=== PATIENT | female | born 1995 | race Caucasian/White ===

== ENCOUNTER 2017-01-18 17:07 | Emergency (ER) | payer MEDICAID ==
[2017-01-18 17:20] VITALS: BP 115/66
--- NOTE | 2017-01-18 17:27 | UC ---
Eye Complaint HPI - HPI Summary HPI Summary: complaint of right eye redness that started this morning slightly itchy and irritated lots of purulent discharge denies eye pain vision changes daughter with conjunctivitis - History of Current Complaint Chief Complaint: UCEye Stated Complaint: EYE COMPLAINT Time Seen by Provider: 01/18/17 17:19 Hx Obtained From: Patient Hx Last Menstrual Period: IUD - Allergies/Home Medications Allergies/Adverse Reactions: Allergies Allergy/AdvReac Type Severity Reaction Status Date / Time No Known Allergies Allergy Verified 01/18/17 17:14 PMH/Surg Hx/FS Hx/Imm Hx Previously Healthy: Yes - Surgical History Surgical History: None - Family History Known Family History: Negative: Cardiac Disease, Hypertension, Diabetes - Social History Occupation: Employed Full-time Lives: With Family Alcohol Use: Rare Substance Use Type: None Smoking Status (MU): Current Every Day Smoker Amount Used/How Often: 1 pack every couple days Cessation Counseling: Patient Advised to Stop - Immunization History Most Recent Influenza Vaccination: NONE 2015 Most Recent Tetanus Shot: UTD Review of Systems Constitutional: Negative Skin: Negative Eyes: Drainage, Eye Redness ENT: Negative Respiratory: Negative Cardiovascular: Negative Gastrointestinal: Negative Genitourinary: Negative Motor: Negative Neurovascular: Negative Musculoskeletal: Negative Neurological: Negative Psychological: Negative All Other Systems Reviewed And Are Negative: Yes Physical Exam Triage Information Reviewed: Yes Appearance: No Pain Distress, Well-Nourished Vital Signs: Initial Vital Signs Temp 98.5 F 01/18/17 17:15 Pulse 89 01/18/17 17:15 Resp 16 01/18/17 17:15 BP 115/66 01/18/17 17:15 Pulse Ox 99 01/18/17 17:15 Vital Signs Reviewed: Yes Eyes: Positive: Conjunctiva Inflamed - right, Discharge - right ENT: Positive: Pharynx normal, TMs normal. Negative: Nasal congestion Neck: Positive: No Lymphadenopathy Respiratory: Positive: Lungs clear, Normal breath sounds, No respiratory distress, No accessory muscle use Cardiovascular: Positive: RRR, No Murmur, Pulses Normal Abdomen Description: Positive: Nontender, Soft Bowel Sounds: Positive: Present Musculoskeletal Exam: Normal Neurological: Positive: Alert Psychological Exam: Normal Skin Exam: Normal Eye Complaint Course/Dx - Differential Dx/Diagnosis Differential Diagnosis/HQI/PQRI: Conjunctivitis, Foreign Body Provider Diagnoses: conjunctivitis- right Discharge - Discharge Plan Condition: Stable Disposition: HOME Prescriptions: Tobramycin 0.3% OPHTH.WILLY* 1 drop BOTH EYES Q4H #1 btl Patient Education Materials: Conjunctivitis (ED) Forms: *Work Release Referrals: No Primary Care Phys,NOPCP [Primary Care Provider] - [facility] [place] PHYSICIAN REFERRAL [Outside] Additional Instructions: CONJUNCTIVITIS What is Conjunctivitis? Conjunctivitis is redness and swelling of the conjunctiva, the thin transparent layer that lines the inner eyelid and covers the white part of the eye. The three main types of conjunctivitis are infectious, allergic, and chemical. The infectious type, commonly called "pink eye," is caused by a contagious virus or by bacteria. Your body's allergies to pollen, cosmetics, animals or fabrics often bring on allergic conjunctivitis. Irritants like air pollution, noxious fumes and chlorine in swimming pools may produce the chemical form. Symptoms Might Include: More tearing Eye pain Redness in the eyes Gritty feeling in the eyes Itching of the eye Blurred vision Sensitivity to light Crusts that form on the eyelid overnight Treatment Recommendations: Use eye drops or ointment as directed. Do not rub or touch your eyes. Wash your hands frequently. Use cool compresses to relieve pain and itching. Prevention: Do not share eye make-up. Replace eye make-up frequently. Do not share towels, washcloths, etc. Do not share eye drops. Do not wear contact lenses while you have conjunctivitis. Call Your Doctor or Return Here IF: Your symptoms worsen or do not improve in 3 to 4 days. You have problems with, or loss of, your vision. You have a significant increase in pain. You have any new symptoms that worry you.
== END 2017-01-18 17:39 | disposition home or self-care (01) ==
LOC: UCCORT 17:07
DX: H10.9 Unspecified conjunctivitis (principal); F17.210 Nicotine dependence, cigarettes, uncomplicated
CPT/HCPCS: 99212; G0463

== ENCOUNTER 2017-03-31 12:11 | Emergency (ER) | payer OTHER ==
[2017-03-31 12:21] VITALS: BP 113/54
--- NOTE | 2017-03-31 12:32 | UC ---
Respiratory Complaint HPI - HPI Summary HPI Summary: 21 y/o female presents to the urgent care c/o of a persistent productive cough, fatigue for the past 1 1/2week. Pt states she has had subjective fever at home on and off. Cough is producing a green phlegm, mild SOB at night time. She has taking Nyquil and cough drops to alleviate symptoms w/o any improvement. 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 Pt denies chest pain, Nasal congestion, sinus tenderness, SALDAÑA, N/V/D. - History of Current Complaint Chief Complaint: UCGeneralIllness Stated Complaint: COUGH Time Seen by Provider: 03/31/17 12:17 Hx Obtained From: Patient Hx Last Menstrual Period: doesn't get - has IUD ?: No Onset/Duration: Gradual Onset, Lasting Weeks, Still Present Timing: Constant Severity Initially: Mild Severity Currently: Moderate Pain Intensity: 0 Pain Scale Used: 0-10 Numeric Character: Cough: Productive - green phlegm Aggravating Factors: Exertion Alleviating Factors: OTC Meds Associated Signs And Symptoms: Positive: Dyspnea - at times, Fever - subjective at home. Negative: Chills, Pleuritic Chest Pain, Wheezing, Nasal Congestion, Sinus Discomfort - Risk Factors Pulmonary Embolism Risk Factors: Negative Cardiac Risk Factors: Negative Pseudomonas Risk Factors: Negative Tuberculosis Risk Factors: Negative - Allergies/Home Medications Allergies/Adverse Reactions: Allergies Allergy/AdvReac Type Severity Reaction Status Date / Time Latex Allergy Rash Verified 03/31/17 12:16 Home Medications: Home Medications Levonorgestrel (Iud) [Mirena IUD] 20 mcg IU SEE INSTRUCTIONS 03/31/17 [History Confirmed 03/31/17] PMH/Surg Hx/FS Hx/Imm Hx Previously Healthy: Yes - Surgical History Surgical History: None - Family History Known Family History: Negative: Cardiac Disease, Hypertension, Diabetes - Social History Occupation: Employed Full-time Lives: With Family Alcohol Use: Occasionally Substance Use Type: None Smoking Status (MU): Never Smoked Tobacco Amount Used/How Often: 1 pack every couple days - Immunization History Most Recent Influenza Vaccination: NONE 2015 Most Recent Tetanus Shot: UTD Vaccination Up to Date: Yes Review of Systems Constitutional: Fever - at home Skin: Negative Eyes: Negative ENT: Negative Respiratory: Shortness Of Breath - at times, Cough - productive with green sputum Cardiovascular: Negative Gastrointestinal: Negative Genitourinary: Negative Motor: Negative Neurovascular: Negative Musculoskeletal: Arthralgia Neurological: Negative Psychological: Negative All Other Systems Reviewed And Are Negative: Yes Physical Exam Triage Information Reviewed: Yes Appearance: Well-Appearing, No Pain Distress, Well-Nourished, Thin Vital Signs: Initial Vital Signs Temp 99.1 F 03/31/17 12:17 Pulse 86 03/31/17 12:17 Resp 16 03/31/17 12:17 BP 113/54 03/31/17 12:17 Pulse Ox 100 03/31/17 12:17 Vital Signs Reviewed: Yes Eye Exam: Normal Eyes: Positive: Conjunctiva Clear - PERRLA EOMI, fundi grossly normal ENT Exam: Normal ENT: Positive: Normal ENT inspection, Hearing grossly normal, Pharynx normal, TMs normal. Negative: Tonsillar swelling, Tonsillar exudate Dental Exam: Normal Neck exam: Normal Neck: Positive: Supple, Nontender, No Lymphadenopathy Respiratory Exam: Normal Respiratory: Positive: Chest non-tender, Normal breath sounds, No respiratory distress, Crackles - Postrior lung with mild crackles Cardiovascular Exam: Normal Cardiovascular: Positive: RRR, No Murmur, Pulses Normal Abdominal Exam: Normal Abdomen Description: Positive: Nontender, No Organomegaly, Soft. Negative: CVA Tenderness (R), CVA Tenderness (L) Bowel Sounds: Positive: Present Musculoskeletal Exam: Normal Neurological Exam: Normal Psychological Exam: Normal Skin Exam: Normal UC Diagnostic Evaluation - Laboratory O2 Sat by Pulse Oximetry: 100 Respiratory Course/Dx - Course Course Of Treatment: 21 y/o female presents to the urgent care c/o of a persistent productive cough, fatigue for the past 1 1/2week. Pt states she has had subjective fever at home on and off. Cough is producing a green phlegm, mild SOB at night time. She has taking Nyquil and cough drops to alleviate symptoms w/o any improvement. 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 Pt denies chest pain, Nasal congestion, sinus tenderness, SALDAÑA , N/V/D. Hx obtained. 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 Pt Rx Z-vladislav PO and tessalon tabs PO, Albuterol Inhaler to broschospasm. Pt advised is not improvement of symptoms to return to the urgent care or f/u with her PCP for further managment. Pt undersood and agreed - Differential Dx/Diagnosis Differential Diagnosis/HQI/PQRI: Asthma, Bronchitis, Influenza, Laryngitis, Lower Resp Infection, Sinusitis Provider Diagnoses: 1- Acute Bronchitis Discharge - Discharge Plan Condition: Stable Disposition: HOME Prescriptions: Albuterol HFA INHALER* [Ventolin HFA Inhaler*] 1 puff INH Q6H PRN #1 mdi PRN Reason: Cough Azithromycin TAB* [Zithromax TAB (Z-VLADISLAV) 250 mg #6 tabs] 2 tab PO .TODAY, THEN 1 DAILY #1 vladislav Benzonatate CAP* [Tessalon 100 MG CAP*] 100 mg PO TID #15 cap Patient Education Materials: Acute Bronchitis (ED) Forms: *Work Release Referrals: [facility] [place] [facility]IAN REFERRAL [Outside] - If Needed No Primary Care Phys,NOPCP [Primary Care Provider] - Additional Instructions: 1- Please take the full course of the antibiotic to avoid resistance. 2-Please take Tessalon PO tabs as instructed , increase fluid intake, rest and eat well. Use the albuterol inhaler if you feel SOB or bronchospasm. 3-If symptoms do not improve or worsen please return to the urgent care or f/u with your PCP for further evaluation and treatment.
== END 2017-03-31 12:55 | disposition home or self-care (01) ==
LOC: UCCORT 12:11
DX: J20.9 Acute bronchitis, unspecified (principal)
CPT/HCPCS: 99212; G0463

== ENCOUNTER 2017-07-07 10:46 | Emergency (ER) | payer OTHER ==
[2017-07-07 11:01] VITALS: BP 129/82
--- NOTE | 2017-07-07 12:08 | RAD ---
HISTORY: Cough COMPARISONS: None VIEWS: 4: Frontal dual-energy and lateral views of the chest. FINDINGS: CARDIOMEDIASTINAL SILHOUETTE: The cardiomediastinal silhouette is normal. TRICIA: The tricia are normal. PLEURA: The costophrenic angles are sharp. No pleural abnormalities are noted. LUNG PARENCHYMA: The lungs are clear. ABDOMEN: The upper abdomen is clear. There is no subphrenic gas. BONES AND SOFT TISSUES: No bone or soft tissue abnormalities are noted. OTHER: None. IMPRESSION: NO ACTIVE CARDIOPULMONARY DISEASE.
--- NOTE | 2017-07-07 12:40 | UC ---
General HPI - HPI Summary HPI Summary: SIX WEEKS OF PRODUCTIVE COUGH. HAD BEEN GIVEN ZPACK AND TESSALON PERLES. 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 Negative: Abdominal Pain, Chest Pain, Dizziness, Diarrhea, Dysuria, Fever, Immunocompromised, Syncope, SOB, Weakness - Allergy/Home Medications Allergies/Adverse Reactions: Allergies Allergy/AdvReac Type Severity Reaction Status Date / Time Latex Allergy Rash Verified 07/07/17 11:01 PMH/Surg Hx/FS Hx/Imm Hx Previously Healthy: Yes - Surgical History Surgical History: None - Family History Known Family History: Negative: Cardiac Disease, Hypertension, Diabetes - Social History Occupation: Employed Full-time Lives: With Family Alcohol Use: Occasionally Substance Use Type: None Smoking Status (MU): Current Every Day Smoker Amount Used/How Often: 1 pack every couple days - Immunization History Most Recent Influenza Vaccination: NONE 2017 Most Recent Tetanus Shot: UTD Vaccination Up to Date: Yes Review of Systems Constitutional: Negative Skin: Negative Eyes: Negative ENT: Nasal Discharge, Sinus Congestion, Sinus Pain/Tenderness Respiratory: Cough Cardiovascular: Negative Gastrointestinal: Negative Genitourinary: Negative Motor: Negative Neurovascular: Negative Musculoskeletal: Negative Neurological: Negative Psychological: Negative Is Patient Immunocompromised?: No All Other Systems Reviewed And Are Negative: Yes Physical Exam Triage Information Reviewed: Yes Appearance: No Pain Distress, Well-Nourished, Ill-Appearing - MILDLY Vital Signs: Initial Vital Signs Temp 98.2 F 07/07/17 10:55 Pulse 93 07/07/17 10:55 Resp 18 07/07/17 10:55 BP 129/82 07/07/17 10:55 Pulse Ox 100 07/07/17 10:55 Vital Signs Reviewed: Yes Eye Exam: Normal ENT: Positive: Hearing grossly normal, Nasal congestion, Nasal drainage, TM bulging, TM dull Dental Exam: Normal Neck exam: Normal Neck: Positive: Supple, Nontender, No Lymphadenopathy Respiratory Exam: Other - COUGH Respiratory: Positive: Chest non-tender, Lungs clear, Normal breath sounds, No respiratory distress, No accessory muscle use Cardiovascular Exam: Normal Cardiovascular: Positive: RRR, No Murmur, Pulses Normal, Brisk Capillary Refill Abdominal Exam: Normal Abdomen Description: Positive: Nontender, No Organomegaly Musculoskeletal Exam: Normal Musculoskeletal: Positive: Strength Intact, ROM Intact Neurological Exam: Normal Psychological Exam: Normal Skin Exam: Normal Course/Dx - Differential Dx - Multi-Symptom Differential Diagnoses: Sepsis, Urinary Tract Infection Provider Diagnoses: URINARY TRACT INFECTION, SINUSITIS Discharge - Discharge Plan Condition: Stable Disposition: HOME Prescriptions: Ondansetron ODT TAB* [Zofran 4 MG Odt TAB*] 4 mg PO Q8H PRN #9 tab.odt PRN Reason: Vomiting Sulfamethox/Trimethoprim DS* [Bactrim DS 800/160 TAB*] 1 tab PO BID #20 tab Patient Education Materials: Urinary Tract Infection in Women (ED), Sinusitis ( ED) Forms: *Work Release Referrals: [facility] PHYSICIAN REFERRAL [Outside] No Primary Care Phys,NOPCP [Primary Care Provider] -
== END 2017-07-07 12:22 | disposition home or self-care (01) ==
LOC: UCCORT 10:46
DX: J32.9 Chronic sinusitis, unspecified (principal); R05 Cough; N39.0 Urinary tract infection, site not specified; Z32.02 Encounter for pregnancy test, result negative; F17.200 Nicotine dependence, unspecified, uncomplicated
CPT/HCPCS: 71020; 81003; 84702; 99212; G0463

== ENCOUNTER 2018-06-16 17:04 | Emergency (ER) | payer OTHER ==
[2018-06-16 17:18] VITALS: BP 127/82
--- NOTE | 2018-06-16 17:28 | UC ---
UC General HPI - HPI Summary HPI Summary: PT C/O PAIN ACROSS HER LOWER ABDOMEN. IT BEGAN THE NIGHT BEFORE LAST. SHE DID HAVE A BM THAT NIGHT. + NAUSEA. VOMITED ONCE YESTERDAY AMD ONCE TODAY. NO DIARRHEA. DENIES ANY FEVER, DYSURIA AND VAGINAL DISCHARGE. HAS BEEN STRAINING TO HAVE A BM SINCE THEN THINKING IT MAY HELP BUT HAS NOT. TX MIRALAX AND MOTRIN WITH NO RELIEF. NO HX IBD. - History of Current Complaint Chief Complaint: UCGI Stated Complaint: ABDOMINAL PAIN Time Seen by Provider: 06/16/18 17:21 Hx Obtained From: Patient Hx Last Menstrual Period: IUD Pain Intensity: 7 - Allergy/Home Medications Allergies/Adverse Reactions: Allergies Allergy/AdvReac Type Severity Reaction Status Date / Time latex Allergy Rash Verified 06/16/18 17:13 PMH/Surg Hx/FS Hx/Imm Hx Previously Healthy: Yes - Surgical History Surgical History: None - Family History Known Family History: Positive: Other - MS Negative: Cardiac Disease, Hypertension, Diabetes - Social History Alcohol Use: Occasionally Substance Use Type: None Smoking Status (MU): Current Every Day Smoker Type: Cigarettes Amount Used/How Often: 1 pack every couple days - Immunization History Most Recent Influenza Vaccination: NONE 2016 Most Recent Tetanus Shot: UTD Vaccination Up to Date: Yes Review of Systems All Other Systems Reviewed And Are Negative: Yes Constitutional: Positive: Negative Skin: Positive: Negative Eyes: Positive: Negative ENT: Positive: Negative Respiratory: Positive: Negative Cardiovascular: Positive: Negative Gastrointestinal: Positive: Abdominal Pain, Vomiting, Nausea Genitourinary: Positive: Negative Motor: Positive: Negative Neurovascular: Positive: Negative Musculoskeletal: Positive: Negative Neurological: Positive: Negative Psychological: Positive: Negative Is Patient Immunocompromised?: No Physical Exam Triage Information Reviewed: Yes Appearance: Well-Appearing Vital Signs: Initial Vital Signs Temp 97.2 F 06/16/18 17:12 Pulse 62 06/16/18 17:12 Resp 14 06/16/18 17:12 BP 127/82 06/16/18 17:12 Pulse Ox 100 06/16/18 17:12 Vital Signs Reviewed: Yes Eyes: Positive: Conjunctiva Clear ENT: Positive: Pharynx normal, TMs normal. Negative: Nasal congestion, Nasal drainage Neck: Positive: Supple, Nontender, No Lymphadenopathy Respiratory: Positive: Lungs clear, Normal breath sounds Cardiovascular: Positive: RRR, No Murmur Abdomen Description: Positive: Other: - Flat, +BS, soft. pt notes suprapubic tenderness. no mass, hsm or cva tenderness. no guarding or rebound tenderness. Musculoskeletal: Positive: ROM Intact Neurological: Positive: Alert Psychological: Positive: Age Appropriate Behavior Skin Exam: Normal Diagnostics - Laboratory Diagnostic Studies Completed/Ordered: u/a=trace leukocytes. hcg=neg Course/Dx - Course Course Of Treatment: [facility] ER CALLED. REPORT GIVEN TO FRANDY CATHERINE NP AT [facility]. ADVISED OF LOWER ABDOMINAL PAIN WITH NEG HCG AND UNREMARKABLE U/A. - Differential Dx - Multi-Symptom Differential Diagnoses: Other - APPENDICITIS, OVARIAN PATHOLOGY, DOUBT RENAL COLIC, DOUBT CONSTIPATION. PT AGREES TO ER TRANSFER. Provider Diagnoses: lower abdominal pain Discharge - Sign-Out/Discharge Documenting (check all that apply): Patient Departure All imaging exams completed and their final reports reviewed: No Studies - Discharge Plan Condition: Stable Disposition: TRANS HIGHER LVL OF CARE FAC Referrals: No Primary Care Phys,NOPCP [Primary Care Provider] - Additional Instructions: LEAVE HERE AND GO DIRECTLY TO THE [facility] ER DISCUSSED. - Billing Disposition and Condition Condition: STABLE Disposition: Trans Higher Lvl of Care Fac
== END 2018-06-16 18:14 | disposition short-term general hospital (02) ==
LOC: UCCORT 17:04
DX: R10.30 Lower abdominal pain, unspecified (principal); R11.2 Nausea with vomiting, unspecified; F17.210 Nicotine dependence, cigarettes, uncomplicated; Z91.040 Latex allergy status
CPT/HCPCS: 81003; 84702; 87086; 99212; G0463